=== PATIENT | female | born 1980 | race African-American/Black ===

== ENCOUNTER 2018-08-10 19:25 | Emergency (ER) | payer MEDICARE, MEDICAID ==
[~2018-08-10] VITALS: Ht 157.5 cm; Wt 72.6 kg
[~2018-08-10 19:25] MED LIST: ATIVAN0.5 MG ORAL
[2018-08-10 19:39] VITALS: BP 118/68
--- NOTE | 2018-08-10 19:54 | NUR ---
ER Nurse Note: Pt DAISY [id number] from her place of stay c/o depression, generalized body ache. Pt stated she had hx of seizures, family hx of cardiac, psychosis. Pt stated she has not had a seizure in over 4 months and has not taken her meds since over 5 months. Pt stated she is currently on prescribed psych meds from her psychiatrist. Pt a&ox4, VSS, no sigs of distress. All belongings taken and placed in locker 2, all labs completed and awaiting results. All safety measures met; will continue to [facility].
--- NOTE | 2018-08-10 19:58 | Emergency Room Report ---
History of Present Illness General Chief Complaint: Behavioral Complaint Source: Patient Present Illness HPI 38-year-old female with history of bipolar and schizophrenia brought in by paramedics complaining of depression. Patient reports that she is on Ativan as well as trazodone however does not recall the antipsychotic medication that she is on sinuses is not a surgical as she is allergic. Patient also reports that she has history of seizures however has not had a seizure in the past 4 months and says that she stopped taking seizure medication which does not recall the name a year ago. Patient reports that she feels generalized aching as well as a little bit of chest pressure in the past few days and making it to her depression. Patient denies suicidal and homicidal ideation. Patient has a low amount of sleep however denies any recent impulsive or grandiose behavior. Denies visual and auditory hallucinations. Is present and agrees to voluntarily go to inpatient psychiatric hospital as she has no suicidal or homicidal ideation. Patient stable upon arrival. Denies chest pain, palpitation, abdominal pain, nausea vomiting, dizziness and headache. Denies urinary symptoms. Denies drug use, smoking, alcohol abuse. Denies urinary or bowel incontinence. Patient is not a good historian. Allergies: Coded Allergies: No Known Allergies (Unverified , 08/10/18) Patient History Past Medical History: see triage record Past Surgical History: unable to obtain Family History: none Now: No Immunizations: UTD Reviewed Nursing Documentation: PMH: Agreed; PSxH: Agreed Nursing Documentation-PM Past Medical History: No History, Except For Hx Cardiac Problems: Yes Hx Seizures: Yes Review of Systems All Other Systems: negative except mentioned in HPI Physical Exam Vital Signs Date Time Temp Pulse Resp B/P (MAP) Pulse Ox O2 Delivery O2 Flow Rate FiO2 08/10/18 19:22 98.6 98 14 118/68 (85) 98 Room Air Sp02 EP Interpretation: reviewed, normal General Appearance: normal inspection, alert/responsive Head: normocephalic, atraumatic Eyes: normal eye exam, PERRL ENT: normal ENT inspection, TMs + canals normal, hearing intact, nasal exam normal Neck: normal inspection, supple/symm/no masses, thyroid normal Respiratory: normal inspection, effort normal, no rhonchi, no wheezing, no retractions Cardiovascular: normal inspection, regular rate, rhythm, no murmur, gallop, rub Gastrointestinal: normal inspection, non-tender, no mass, non-distended Musculoskeletal: normal inspection, gait & station normal Neurologic: normal inspection, CN II-XII intact, oriented x3, DTRs symmetric Psychiatric: judgment & insight normal, memory normal, no suicidal/homicidal ideation, no delusions, anxious Skin: normal inspection, no rash, normal palpation Lymphatic: normal inspection, normal cervical nodes Medical Decision Making PA Attestation All my diagnosis and treatment plans were reviewed ad discussed with my supervising physician Dr. Titus Diagnostic Impression: Primary Impression: Schizoaffective disorder, bipolar type ER Course 38-year-old female with history of bipolar and schizophrenia brought in by paramedics complaining of depression. Patient reports that she is on Ativan as well as trazodone however does not recall the antipsychotic medication that she is on sinuses is not a surgical as she is allergic. Patient also reports that she has history of seizures however has not had a seizure in the past 4 months and says that she stopped taking seizure medication which does not recall the name a year ago. Patient reports that she feels generalized aching as well as a little bit of chest pressure in the past few days and making it to her depression. Patient denies suicidal and homicidal ideation. Patient has a low amount of sleep however denies any recent impulsive or grandiose behavior. Denies visual and auditory hallucinations. Is present and agrees to voluntarily go to inpatient psychiatric hospital as she has no suicidal or homicidal ideation. Patient stable upon arrival. Denies chest pain, palpitation, abdominal pain, nausea vomiting, dizziness and headache. Denies urinary symptoms. Denies drug use, smoking, alcohol abuse. Denies urinary or bowel incontinence. Patient is not a good historian. Ddx considered but are not limited to: generalized anxiety disorder, panic attack, depression with psycotic featurs, bipolar disorder, drug overdose Bipolar schizophrenia Vital signs: are WNL, pt. is afebrile H&PE are most consistent with: Bipolar schizophrenia ORDERS: Chest x-ray, EKG, UA, urine tox ED INTERVENTIONS: None required at this time. DISCHARGE: At this time pt. is stable for d/c to home. Will provide printed patient care instructions, and any necessary prescriptions. Care plan and follow up instructions have been discussed with the patient prior to discharge. Patient to go to psychiatric hospital for further evaluation patient does not have any suicidal no homicidal ideation at time of discharge Affect low back and around patient and his client and does not respond to my questions in a stuporous position however when I told her that she needs to go to psychiatric facility she starts talking. At this time there is no indication for keeping the patient here patient is to go back to [facility] and will be transported EKG Diagnostic Results Rhythm: NSR ST Segments: no acute changes Chest X-Ray Diagnostic Results Chest X-Ray Diagnostic Results : Chest X-Ray Ordered: Yes # of Views/Limited/Complete: 1 View Indication: Other EP Interpretation: Yes Interpretation: no consolidation, no effusion, no pneumothorax Impression: No acute disease Electronically Signed by: krissy armendariz PA-C Last Vital Signs Date Time Temp Pulse Resp B/P (MAP) Pulse Ox O2 Delivery O2 Flow Rate FiO2 08/10/18 19:39 98.6 98 14 118/68 98 Room Air Disposition: XFER TO PSYCH HOSP/UNIT Condition: Stable Referrals: NOT CHOSEN IPA/MD,REFERRING (PCP) Patient Instructions: Bipolar Disorder, Schizophrenia, Self-Destructive Behavior Krissy Ledbetter Aug 10, 2018 19:58
[2018-08-10 20:12] LABS: APPEARANCE,URINE SLIGHTLY CLOUDY; BILIRUBIN, URINE NEGATIVE (NEGATIVE); GLUCOSE, URINE (UA) NEGATIVE (NEGATIVE); KETONES,URINE NEGATIVE (NEGATIVE); LEUKOCYTE ESTERASE ,URINE NEGATIVE (NEGATIVE); NITRITE,URINE NEGATIVE (NEGATIVE); PH,URINE 6 (4.5-8.0); PROTEIN,URINE NEGATIVE (NEGATIVE); UROBILINOGEN,URINE 1 MG/DL (0.0-1.0)
[2018-08-10 20:18] LABS: COLOR,URINE YELLOW
--- NOTE | 2018-08-10 20:45 | Diagnostic Imaging Report ---
EXAM: XR Chest, 1 View CLINICAL HISTORY: PAIN TECHNIQUE: Frontal view of the chest. COMPARISON: No relevant prior studies available. FINDINGS: Lungs: Unremarkable. No consolidation. Pleural space: Unremarkable. No pneumothorax. Heart: Unremarkable. No cardiomegaly. Mediastinum: Unremarkable. Bones/joints: Unremarkable. IMPRESSION: Normal chest x-ray.
[2018-08-10 21:59] VITALS: BP 116/70
--- NOTE | 2018-08-10 21:59 | NUR ---
ER Nurse Note: Pt calm, cooperative. Pt's biological mom called and informed about pt status. Mom provided an address of the location the pt is staying at. Tried calling but went to voicemail. Will try again. Pt is cleared for discharge. All orders completed; will continue to [facility].
--- NOTE | 2018-08-10 22:13 | NUR ---
ER Nurse Note: Candida Pate, mom: home- ; cell- . Per mom, mom stated pt experienced in the family/friend and pt has been more irratically than her baseline. Mom called a hotline crisis and pt was sent to [facility] on 08/02 and was DX with catatonic schizophrenia and was released from [facility] 08/06. Pt is taking perscribed meds by her psych MD. Pt is currently staying at [facility]. Will try to call.
--- NOTE | 2018-08-10 22:38 | NUR ---
ER Nurse Note: Pt provided with Candida's address. [address], [place]. Pt stable; singing in room. Calm. Bed in lowest position; will continue to [facility].
--- NOTE | 2018-08-10 23:56 | NUR ---
ER Nurse Note: Talked to Jose, musician [facility] of [facility]. She is willing to take pt back and is aware of pt's discharge.
[2018-08-11] MEDS ORDERED: LORAZEPAM1 MG ORAL (00:29)
[2018-08-11] MEDS ORDERED: RISPERDAL2 MG ORAL (00:29)
[2018-08-11] MEDS ORDERED: TRAZODONE HCL150 MG ORAL (00:29)
[2018-08-11] MEDS ORDERED: SERTRALINE HCL100 MG PO (00:29)
[2018-08-11 01:04] VITALS: BP 120/72
--- NOTE | 2018-08-11 01:04 | NUR ---
ER Nurse Note: Pt calm, cooperative, no signs of distress. Pt VSS, stable. Food, blanket and juice provided. Taxi called; awaiting transportation.
[2018-08-11 01:30] VITALS: BP 120/72
--- NOTE | 2018-08-11 01:30 | NUR ---
ER Nurse Note: Notifed Jose and she is aware of pt arriving at the place of stay. Pt a&ox4, VSS, no signs of distress. Pt left with all belongings, arranged transportation via taxi.
== END 2018-08-11 01:30 | disposition home or self-care (01) ==
LOC: EDBD 19:25 → EMR 19:31
DX: F25.0 Schizoaffective disorder, bipolar type (principal); G40.909 Epilepsy, unspecified, not intractable, without status epilepticus
CPT/HCPCS: 71045; 80307; 81001; 81025; 93005; 99285